=== PATIENT | female | born 1970 | race American Indian/Alaskan Native ===

== ENCOUNTER 2018-07-06 11:26 | Emergency (ER) | payer MEDICAID ==
[2018-07-06 11:27] VITALS: BMI 29.2
[2018-07-06 11:39] VITALS: TEMP 97.9
[2018-07-06] MEDS ORDERED: Sodium Chloride 0.9% 1,000 ML IV STA (12:28)
[2018-07-06 12:58] LABS: BASO # 0.02 K/mm3 (0.0-2.0); BASO % 0.4 % (0.0-3.0); EOS # 0.2 (0.0-0.7); EOS % 3.8 % (1.5-5.0); GRAN # 2.31 (1.4-6.5); GRAN % 42.3 % (50.0-68.0); HEMOGLOBIN 13.1 g/dL (12.0-16.0); LYMPH # 2.6 (1.2-3.4); LYMPH % 47.8 % (22.0-35.0); MEAN CELL VOLUME 94.1 fl (80.0-105.0); MEAN CORPUSCULAR HEMOGLOBIN 32.1 pg (25.0-35.0); MEAN CORPUSCULAR HGB CONC 34.1 g/dl (31.0-37.0); MEAN PLATELET VOLUME 9.1 fl (7.0-11.0); MONO # 0.3 (0.1-0.6); MONO % 5.7 % (1.0-6.0); RBC 4.08 10^6/uL (3.5-6.1); RED CELL DISTRIBUTION WIDTH 12.7 % (11.5-14.5); WHITE BLOOD COUNT 5.5 10^3/uL (4.5-11.0)
[2018-07-06 12:59] LABS: PH,URINE 6.5 (4.7-8.0); URINE APPEARANCE CLEAR (CLEAR); URINE BILIRUBIN NEGATIVE (NEGATIVE); URINE BLOOD NEGATIVE (NEGATIVE); URINE COLOR YELLOW (YELLOW); URINE GLUCOSE (UA) NEGATIVE (NEGATIVE); URINE LEUKOCYTE ESTERASE TRACE Leu/uL (NEGATIVE); URINE PROTEIN NEGATIVE mg/dL (<30 mg/dL); URINE UROBILINOGEN 0.2 E.U./dL (<1 E.U./dL)
[2018-07-06 13:02] LABS: URINE BACTERIA MOD /hpf; URINE RBC NEGATIVE /hpf (0-2)
[2018-07-06 13:07] LABS: INR 0.97; PARTIAL THROMBOPLASTIN TIME 30.7 Seconds (25.1-36.5); PROTHROMBIN TIME 11.1 SECONDS (9.4-12.5)
[2018-07-06 13:32] LABS: ALB/GLOB RATIO 1.3 (1.1-1.8); ALBUMIN 4.4 g/dL (3.0-4.8); ALT/SGPT 30 U/L (7-56); AST/SGOT 27 U/L (14-36); BLOOD UREA NITROGEN 12 mg/dL (7-21); CALCIUM 9.9 mg/dL (8.4-10.5); GFR NON-AFRICAN AMERICAN > 60
[2018-07-06 13:43] LABS: TROPONIN I < 0.01 ng/mL
[2018-07-06 14:04] VITALS: BP 146/84; PULSE 70; RESP 17
--- NOTE | 2018-07-06 14:13 | ED PDOC ---
Arrival/HPI - General Chief Complaint: Dizziness/Lightheaded Time Seen by Provider: 07/06/18 11:44 Historian: Patient - History of Present Illness Narrative History of Present Illness (Text): 07/06/18 14:11 47yo female with past medical history of anemia and vertigo who present with complaint of dizziness and fatigue x 5days. Also report headache and nausea. States she always get dizziness, but it usually don't last for days. Report tinnitus for the past few days. States she saw a Doctor for the dizziness in the past, but was never placed on medication for it. She states dizziness is usually associated with nausea, abdominal discomfort and headache. She described dizziness as spinning. She denies focal weakness, chest pain, SOB, slurred speech, visual changes, diarrhea, constipation, any other complaint. Past Medical History - Provider Review Nursing Documentation Reviewed: Yes - Infectious Disease Hx of Infectious Diseases: None - Tetanus Immunization Tetanus Immunization: Unknown - Cardiac Hx Hyperlipemia: Yes - Hematological/Oncological Hx Anemia: Yes - Psychiatric Hx Psychophysiologic Disorder: No Hx Depression: No Hx Emotional Abuse: No Hx Physical Abuse: No Hx Substance Use: No - Past Surgical History Past Surgical History: No Previous - Anesthesia Hx Anesthesia: No Hx Anesthesia Reactions: No Hx Malignant Hyperthermia: No - Suicidal Assessment Feels Threatened In Home Enviroment: No Family/Social History - Physician Review Nursing Documentation Reviewed: Yes Family/Social History: Unknown Family HX Smoking Status: Never Smoked Hx Alcohol Use: No Hx Substance Use: No Hx Substance Use Treatment: No Allergies/Home Meds Allergies/Adverse Reactions: Allergies iodine Allergy (Verified 05/17/16 07:51) ANAPHYLAXIS Iodine and Iodide Containing Produc Allergy (Verified 05/17/16 07:51) ANAPHYLAXIS shellfish derived Allergy (Verified 05/17/16 07:51) ANAPHYLAXIS Home Medications: Home Meds Medication Instructions Recorded Confirmed Ferrous Sulfate [Iron] 325 mg PO TID 05/17/16 05/17/16 Review of Systems - Physician Review All systems were reviewed & negative as marked: Yes - Review of Systems Constitutional: Normal Eyes: Normal ENT: Normal Respiratory: Normal Cardiovascular: Normal Gastrointestinal: Nausea. absent: Abdominal Pain, Constipation, Diarrhea Genitourinary Female: Normal Musculoskeletal: Normal Skin: Normal Neurological: Headache, Dizziness. absent: Focal Weakness, Gait Changes Endocrine: Normal Hemo/Lymphatic: Normal Psychiatric: Normal Physical Exam Vital Signs Reviewed: Yes Vital Signs Temp Pulse Resp BP Pulse Ox 07/06/18 14:03 97.9 F 70 17 146/84 98 07/06/18 11:27 97.9 F 72 18 126/86 98 Temperature: Afebrile Blood Pressure: Normal Pulse: Regular Respiratory Rate: Normal Appearance: Positive for: Well-Appearing, Non-Toxic, Comfortable Pain Distress: None Mental Status: Positive for: Alert and Oriented X 3 - Systems Exam Head: Present: Atraumatic, Normocephalic Pupils: Present: PERRL Extroacular Muscles: Present: EOMI Conjunctiva: Present: Normal Mouth: Present: Moist Mucous Membranes Neck: Present: Normal Range of Motion Respiratory/Chest: Present: Clear to Auscultation, Good Air Exchange. No: Respiratory Distress, Accessory Muscle Use Cardiovascular: Present: Regular Rate and Rhythm, Normal S1, S2. No: Murmurs Abdomen: Present: Normal Bowel Sounds, Other (Soft). No: Tenderness, Distention, Peritoneal Signs, Rebound, Guarding, McBurney's Point Tender, Rovsing's Sign Present Back: Present: Normal Inspection Upper Extremity: Present: Normal Inspection. No: Cyanosis, Edema Lower Extremity: Present: Normal Inspection. No: Edema Neurological: Present: GCS=15, CN II-XII Intact, Speech Normal, Motor Func Grossly Intact, Normal Sensory Function, Normal Cerebellar Funct, Norm Deep Tendon Reflexes, Gait Normal, Memory Normal, Normal 2Pt Descrimination, Other (No focal neurological deficit) Skin: Present: Warm, Dry, Normal Color. No: Rashes Psychiatric: Present: Alert, Oriented x 3, Normal Insight, Normal Concentration Medical Decision Making ED Course and Treatment: 07/06/18 18:58 PT present to emergency department for stated history. She was neurologically intact. Hemodynamically stable in emergency department . Labs EKG Urinalysis 1L NS, Meclizine, Reglan On revaluation pt reports improvement of her symptoms. Her symptoms likely secondary to vertigo. Labs was unremarkable EKG NSR @ 70bpm All result was DW the pt. She was advised to follow up with a Neurologist. DC home with meclizine. - Lab Interpretations Lab Results: 07/06/18 12:50 07/06/18 12:50 Lab Results 07/06/18 12:50: PT 11.1, INR 0.97, APTT 30.7 07/06/18 12:50: Sodium 140, Potassium 4.3, Chloride 103, Carbon Dioxide 31, Anion Gap 10, BUN 12, Creatinine 0.7, Est GFR ( Amer) > 60, Est GFR (Non- Af Amer) > 60, Random Glucose 96, Calcium 9.9, Magnesium 2.2, Total Bilirubin 0.8, AST 27, ALT 30, Alkaline Phosphatase 57, Lactate Dehydrogenase 510, Total Creatine Kinase 118, Troponin I < 0.01, Total Protein 7.9, Albumin 4.4, Globulin 3.5, Albumin/Globulin Ratio 1.3 07/06/18 12:50: Urine Color Yellow, Urine Appearance Clear, Urine pH 6.5, Ur Specific Taylor 1.010, Urine Protein Negative, Urine Glucose (UA) Negative, Urine Ketones Negative, Urine Blood Negative, Urine Nitrate Negative, Urine Bilirubin Negative, Urine Urobilinogen 0.2, Ur Leukocyte Esterase Trace H, Urine RBC Negative, Urine WBC 5 - 10 H, Ur Epithelial Cells 4 - 5, Urine Bacteria Mod 07/06/18 12:50: WBC 5.5, RBC 4.08, Hgb 13.1, Hct 38.4, MCV 94.1, MCH 32.1, MCHC 34.1, RDW 12.7, Plt Count 444, MPV 9.1, Gran % 42.3 L, Lymph % (Auto) 47.8 H, Mills % (Auto) 5.7, Eos % (Auto) 3.8, Baso % (Auto) 0.4, Gran # 2.31, Lymph # (Auto) 2.6, Mills # (Auto) 0.3, Eos # (Auto) 0.2, Baso # (Auto) 0.02 - Medication Orders Current Medication Orders: Discontinued Medications Sodium Chloride (Sodium Chloride 0.9%) 1,000 mls @ 999 mls/hr IV .Q1H1M STA Stop: 07/06/18 13:28 Last Admin: 07/06/18 13:00 Dose: 999 mls/hr eMAR Start Stop Document 07/06/18 13:00 OCS (Rec: 07/06/18 13:00 OCS [id number]) Intravenous Solution Start Date 07/06/18 Start Time 13:00 End Date 12/20/18 End time 14:01 Total Infusion Time 61 Meclizine HCl (Antivert) 25 mg PO STAT STA Stop: 07/06/18 13:12 Last Admin: 07/06/18 13:47 Dose: 25 mg Disposition/Present on Arrival - Present on Arrival Any Indicators Present on Arrival: No History of DVT/PE: No History of Uncontrolled Diabetes: No Urinary Catheter: No History of Decub. Ulcer: No History Surgical Site Infection Following: None - Disposition Have Diagnosis and Disposition been Completed?: Yes Diagnosis: Dizziness Disposition: HOME/ ROUTINE Disposition Time: 14:40 Patient Plan: Discharge Condition: STABLE Discharge Instructions (ExitCare): Vertigo (a Type of Dizziness) Additional Instructions: Follow up with your Doctor/Neurologist/ENT Return to emergency department for any new or worsening symptoms Prescriptions: RX: Meclizine [Meclizine*] 25 mg PO Q8 #15 tab Referrals: Gretchen Roque MD [Primary Care Provider] - Follow up with primary Jm Bui MD [Staff Provider] - Follow up with primary Jude Chan DO [Staff Provider] - Follow up with primary Forms: [employer] (I[place]ic), WORK NOTE
--- NOTE | 2018-07-06 14:59 | CARD ---
APPROVED REPORT Date of service: 07/06/2018 EKG Measurement Heart [id number] <Conclusion> Normal sinus rhythm NSSTW changes
[2018-07-06 15:43] VITALS: O2SAT 99
== END 2018-07-06 14:58 | disposition home or self-care (01) ==
LOC: ED 11:26
DX: R42 Dizziness and giddiness (principal); D64.9 Anemia, unspecified; E78.5 Hyperlipidemia, unspecified
CPT/HCPCS: 80053; 81001; 82550; 83615; 83735; 84484; 85025; 85610; 85730; 87086; 93005; 96360; 99285; J7030